=== PATIENT | female | born 1940 | race Caucasian/White ===

== ENCOUNTER 2016-07-28 13:25 | Inpatient (IN) ==
[2016-07-28] MEDS ORDERED: ALBUTEROL/IPRATROPIUM 3 ML NEB RESP TX PRN (13:26)
--- NOTE | 2016-07-28 14:53 | EKG Report ---
Stationary ECG Study [facility] Test Date: 07/28/2016 2:54:42 PM Pat Name: FERNANDO HINTON Department: Room: 544 Gender: F Curb Supervisor: MAVIS TO READ : 1940 Requested by: Mark Lennon Order Number: [id number] Reading MD: ARTEMIO GAMBLE Intervals [place] Rate: 61 P: 71 MI: 164 QRS: 51 QRSD: 94 T: 67 QT: 401 QTc: 404 Interpretive Statements Normal ECG (DR GAMBLE TO INTERP) SINUS RHYTHM POSSIBLE RIGHT VENTRICULAR CONDUCTION DELAY Electronically Signed On 07-29-16 12:06:41 CDT by ARTEMIO GAMBLE [email or web address]
[2016-07-28] MEDS: DEXTROSE 5% NACL 0.45% 1,000 ML IV SCH (15:19)
[2016-07-28] MEDS: PANTOPRAZOLE 40 MG TABLET PO SCH (15:19)
[2016-07-28] MEDS: methylPREDNISolone SOD SUC 125 MG/2 ML VIAL IV SCH ×2 (15:19→22:22)
[2016-07-28 15:53] LABS: Basophils % 0.2 % (0.0-0.8); Hematocrit 41.3 VOL% (35.7-47.0); Immature Granulocytes % 0.5 %; Immature Granulocytes Absolute 0.04 #; Lymphocytes # 0.6 10*3/uL (1.4-4.0); Lymphocytes % 7.6 % (21.3-54.2); Mean Corpuscular HGB Conc 31.5 GM/DL (32-36); Mean Corpuscular Hemoglobin 29 PG (27-34); Mean Corpuscular Volume 92.6 FL (87-102); Mean Platelet Volume 9.3 FL (9.6-12.0); Monocytes # 0.1 10*3/uL (0.11-0.8); Monocytes % 1.2 % (1.7-12.7); Neutrophils # 7.6 10*3/uL (1.4-7.4); Neutrophils % 90.5 % (38.7-73.9); Platelet Count 302 T/CUMM (130-400); Red Blood Count 4.46 MC/CUMM (3.8-5.5); Red Cell Distribution Width 13.2 % (9.3-17.3); White Blood Count 8.4 T/CUMM (4-12)
--- NOTE | 2016-07-28 16:01 | Pulmonology History & Physical ---
History of Present Illness Chief complaint: Acute exacerbation of asthma refractory to OP tx History of present illness: Mark Lennon, ANP-BC, GNP-BC, acting as scribe for Dr. Douglas Bright Mrs. Javier is a 75 year old white female from [place], [place]. She is followed from a primary care/pulmonary standpoint by Dr. 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 She is followed from a cardiology standpoint by Dr. Rush. She [facility] today as a work-in with complaints of increased shortness of breath, wheeze, and chest tightness for three days duration. She had increased her Prednisone every day and continued her routine medications, but she has been progressively worsening. [place] [facility] [place], she was given subQ Epinephrine but continued to have a significantly prolonged expiration with chest tightness. The decision was then made to hospitalize her for further evaluation and care given her acute illness, advanced age, and multiple co-morbidities. She denies cardiac angina or palpitations. There is no reported dysphagia or reflux. No bleeding from any site. No change in bowel or bladder habits. No TIA symptoms or syncope. All other systems were reviewed and were negative. Allergies: Codeine. Levaquin caused a yeast infection. Macrodantin makes her wheeze. Penicillin caused her lips to swell. Home medications: See list Immunizations: Pneumovax was given 04/21/11. She takes a yearly flu vaccination. The patient had a TDap in 2006. Past medical history: [place] hospitalization 05/28/16 through 06/03/16 under the care of Dr. Bright for status asthmaticus. Asthma. Diverticulitis of the colon. GERD. Hypertension. Sinusitis. Cholecystectomy. Hysterectomy. Several sinus surgeries. Social history: The patient does not smoke. Her in 2014. Her 's brother around the same time. Family history: Noncontributory CXR. Done today at [facility]. The heart size in normal. The mediastinum is not enlarged. There is no hilar adenopathy. The pulmonary arteries are not enlarged. The lung haque show no masses, infiltrates, or pulmonary edema. EKG: Pending Laboratory: Pending Home Medications Medication Instructions Recorded Confirmed Type Furosemide Tab [Lasix Tab] 40 mg PO BID DIURETIC PRN 05/28/16 05/28/16 History Meloxicam 15 mg PO DAILY 05/28/16 05/28/16 History Metoprolol Tartrate 25 mg PO BID 05/28/16 05/28/16 History Montelukast Tab [Singulair Tab] 10 mg PO DAILY 05/28/16 05/28/16 History NIFEdipine [Nifedipine ER] 30 mg PO BEDTIME 05/28/16 05/28/16 History Omeprazole [Prilosec] 20 mg PO DAILY 05/28/16 05/28/16 History Zolpidem Tartrate [Ambien] 10 mg PO BEDTIME 05/28/16 05/28/16 History buPROPion [Wellbutrin] 75 mg PO BID 05/28/16 05/28/16 History Albuterol/Ipratropium Neb [Duoneb] 3 ml RESP TX RT Q6H 06/03/16 Rx Sucralfate Tab [Carafate Tab] 1 gm PO ACHS #120 tablet 06/03/16 Rx Allergies Allergy/AdvReac Type Severity Reaction Status Date / Time nitrofurantoin Allergy Severe SHORTNESS Verified 01/22/16 13:49 [From Macrodantin] OF BREATH codeine Allergy Intermediate ITCHING Verified 01/22/16 13:49 Penicillins Allergy Intermediate Swelling Verified 01/22/16 13:47 of Lip/Tongue/Throat Medical,Surgical,& Family Hx - Medical History Cardio: History of: Hypertension, Cardiovascular Problems (increased heart rate) Respiratory: History of: Asthma No history of: Obstructive Sleep Apnea Musculoskeletal: History of: Musculoskeletal Problems - Surgical History Cardiac Surgeries: Sugical HX of: Cardiac Catheterization (4-5 years ago) Thoracic Surgeries: Patient denies;: Organ Transplant, Lobectomy Neurologic Surgeries: Patient denies: Neurologic Surgery HEENT Surgeries: Surgical HX of: Tonsilectomy & Adenoidectomy (hx of tonsillectomy) Abdominal Surgeries: Surgical HX of: Abdominal Surgery, Cholecystectomy Reproductive Surgeries: Surgical HX of;: Hysterectomy - Family History Family History: Reports;: Family Hypertension (mother), Family Stroke (father) - Social History Smoking Status: Never smoker Frequency of Alcohol Use: None Type of Drug Use: None Results - Labs CBC & BMP: 07/28/16 15:11 Exam (Pulmonay) H&P - Constitutional Vitals: Period Temp Pulse Resp BP Sys/Parra Pulse Ox Last 24 Hr 97.4 F 66 20 145/86 99 Exam: Psych: Alert and oriented x 3; a pleasant and cooperative patient who is acutely ill-appearing HEENT: Pupils, irises, sclera, conjunctiva, and eyelids are normal. The face is symmetrical without rash or masses. Lips, tongue, buccal mucosa, soft and hard palates, and pharynx are WNL Neck: Symmetrical. Thyroid was not palpated. Lymphatics: No submandibular, cervical, or supraclavicular adenopathy Chest: Symmetrical and slightly hyperinflated with little air movement; she is not moving enough air to produce a wheeze at this time Breasts: Deferred CV: Regular without murmur, gallop, or rub Arterial: Carotids with a good upstroke. There is no bruit. Upper extremity pulses are palpable. Lower extremity pulses are palpable. Venous: Exam of the neck, upper, and lower extremities is normal Abd: No appreciable organomegaly, masses, tenderness, or bruit; Bowel sounds are positive x 4; The aorta was not palpated /Rectal: Deferred Extremities: No clubbing, cyanosis, significant edema, or obvious DVT Skin: No cancerous or infectious lesions of the exposed, examined skin; the perineal area was not examined M/S: Age appropriate loss of the normal curvature of the cervical, thoracic, and lumbar spine Neurological: Cranial nerves are intact, Long tract motor function is intact; Sensory exam was not done; gait was not tested. The remainder of the exam was noncontributory. Impression: #1: Acute exacerbation of asthma refractory to OP tx #2: Steroid dependent asthma #3: Hypertension #4: Depression, under good control #5: GERD #6: See past history Plan: #1: Admit to inpatient #2: IV Solumedrol 62.5mg Q8H #3: Increase Singulair to 10mg PO BID #4: Epinephrine 0.1mg subQ Q8H PRN #5: Continue home medications except hold the Prednisone #6: Duoneb QID and PRN #7: See orders
[2016-07-28] MEDS ORDERED: FUROSEMIDE 40 MG TABLET PO PRN (16:30)
[2016-07-28 16:34] LABS: Albumin 4.1 G/DL (3.4-5.0); Bilirubin,Total 0.4 MG/DL (0.2-1.0); Calcium 9.2 MG/DL (8.5-10.1); Magnesium 2.2 MG/DL (1.8-2.4); Osmolality,Calculated 277.7 MOS/KG (273-304); Potassium 4.5 MMOL/L (3.5-5.1); Thyroid Stimulating Hormone 0.844 uIU/ml (0.358-3.74); Total Protein 6.4 G/DL (6.4-8.3)
[2016-07-28] MEDS: ALBUTEROL/IPRATROPIUM 3 ML NEB RESP TX SCH (18:30)
[2016-07-28] MEDS: METOPROLOL TARTRATE 25 MG TABLET PO SCH (20:29)
[2016-07-28] MEDS: MONTELUKAST 10 MG TABLET PO SCH (20:29)
[2016-07-28] MEDS: buPROPion 75 MG TABLET PO SCH (20:29)
[2016-07-28] MEDS: ZALEPLON 5 MG CAPSULE PO SCH (22:22)
[2016-07-29] MEDS: ALBUTEROL/IPRATROPIUM 3 ML NEB RESP TX SCH ×4 (00:30→19:54)
[2016-07-29] MEDS: ACETAMINOPHEN 325 MG TABLET PO PRN ×3 (03:41→14:57)
[2016-07-29] MEDS: methylPREDNISolone SOD SUC 125 MG/2 ML VIAL IV SCH ×3 (06:06→22:43)
[2016-07-29 06:23] LABS: Hematocrit 39.4 VOL% (35.7-47.0); Hemoglobin 12.6 GM/DL (12.0-16.0); Immature Granulocytes % 0.7 %; Immature Granulocytes Absolute 0.05 #; Lymphocytes # 0.9 10*3/uL (1.4-4.0); Lymphocytes % 11.1 % (21.3-54.2); Mean Corpuscular Hemoglobin 29 PG (27-34); Mean Corpuscular Volume 92.1 FL (87-102); Mean Platelet Volume 9.3 FL (9.6-12.0); Monocytes # 0.2 10*3/uL (0.11-0.8); Monocytes % 2.2 % (1.7-12.7); Neutrophils # 6.6 10*3/uL (1.4-7.4); Platelet Count 282 T/CUMM (130-400); Red Blood Count 4.28 MC/CUMM (3.8-5.5); White Blood Count 7.7 T/CUMM (4-12)
[2016-07-29 07:02] LABS: Calcium 8.6 MG/DL (8.5-10.1); Magnesium 2.3 MG/DL (1.8-2.4); Osmolality,Calculated 283.4 MOS/KG (273-304); Potassium 3.9 MMOL/L (3.5-5.1)
--- NOTE | 2016-07-29 08:13 | XRay Report ---
Two-view chest. Indication: Shortness of breath. The heart is normal in size. The pulmonary vasculature is normal. There is a mildly prominent epicardial fat pad. There is mild scarring within the lung haque and the lung haque are mildly hyperexpanded. No consolidation, pneumothorax, or pleural effusion. The osseous structures are diffusely demineralized with exaggerated kyphosis and mild spondylosis involving the thoracic spine. Impression: Stable appearance of the chest. PROCEDURE INTERPRETED AT [facility] DEPARTMENT OF RADIOLOGY Final Report Signed by: Dr. Stacy Mason
[2016-07-29] MEDS: MONTELUKAST 10 MG TABLET PO SCH ×2 (09:05→20:45)
[2016-07-29] MEDS: PANTOPRAZOLE 40 MG TABLET PO SCH (09:05)
[2016-07-29] MEDS: buPROPion 75 MG TABLET PO SCH ×2 (09:05→20:46)
[2016-07-29] MEDS: METOPROLOL TARTRATE 25 MG TABLET PO SCH ×2 (09:05→20:45)
[2016-07-29] MEDS: MELOXICAM 7.5 MG TABLET PO SCH (09:05)
[2016-07-29] MEDS: DEXTROSE 5% NACL 0.45% 1,000 ML IV SCH (09:08)
--- NOTE | 2016-07-29 11:01 | Pulmonology Progress Note ---
Pulmonary - PN: Subj Interval history: This is a 75-year-old white female who is admitted from my office on 07/28/2016. Admit diagnoses were. #1: Acute exacerbation of asthma refractory to OP tx #2: Steroid dependent asthma #3: Hypertension #4: Depression, under good control #5: GERD #6: See past history 07/29/2016. Patient improved overnight. She is still breathless at rest. Her laboratory tests look fine. There are no positive cultures thus far. She is tolerating her treatments well. Patient complains of a headache otherwise there were no new requests and no new complaints. Labs been reviewed. Chest x- ray has been reviewed. I do not see any infiltrates. Medicines been reviewed. Physical exam. Vital signs. See below Psychiatric. Oriented 3. Neurologic. Cranial nerves are intact. Long track motor functions intact. Eyes are normal. Face is symmetrical. Lips and tongue are normal. Neck. Symmetrical. No meningismus. Lymphatics. No submandibular cervical supraclavicular or epitrochlear adenopathy Chest is symmetrical mildly kyphotic and hyperinflated with prolonged incomplete expiration. I do not hear any large or small airway wheezing. There is only faint large airway congestion. The most prominent finding is dyspnea at rest and a prolonged expiration without wheezing. Heart. No gallop Abdomen. Nontender. Bowel sounds are present. Extremities. No submandibular cervical or supraclavicular adenopathy. The remainder the physical exam is noncontributory Plan: #1: Admit to inpatient #2: IV Solumedrol 62.5mg Q8H #3: Increase Singulair to 10mg PO BID #4: Epinephrine 0.1mg subQ Q8H PRN #5: Continue home medications except hold the Prednisone #6: Duoneb QID and PRN #7: See orders and see my note 07/29/2016 Exam (Progress Note) - Constitutional Vitals: Period Temp Pulse Resp BP Sys/Parra Pulse Ox Last 24 Hr 96.5 F-97.6 F 66-86 16-20 123-156/70-87 93-99 Results - Labs CBC & BMP: 07/29/16 05:50 07/29/16 05:50
[2016-07-29] MEDS: KETOROLAC 15 MG/1 ML VIAL IV PRN ×3 (11:50→22:40)
[2016-07-29] MEDS: EPINEPHrine 1 MG/ML VIAL SUBCUT PRN (21:51)
[2016-07-29] MEDS: ZALEPLON 5 MG CAPSULE PO SCH (22:40)
[2016-07-29 23:38] LABS: Apearance,Urine CLEAR (Clear); Bilirubin,Urine Negative (Negative); Blood, Urine Negative (Negative); Glucose,Urine (UA) 150 mg/dL (Negative); Hyaline Casts,Urine 3 /LPF (0-3); Ketones,Urine 5 mg/dL (Negative); Mucus,Urine Moderate /LPF (Occasional); Nitrite,Urine Negative (Negative); Protein,Urine Negative; Squamous Epithelial Cell,Urine Occasional /HPF (0-10); Urine Color Yellow (Yellow); Urine Specific Gravity 1.027 (1.001-1.035); Urine Urobilinogen < 2.0 EU/DL (0.2-1.0); WBC,Urine 1 /HPF (0-6)
[2016-07-30] MEDS: ALBUTEROL/IPRATROPIUM 3 ML NEB RESP TX SCH ×4 (00:54→19:13)
[2016-07-30] MEDS: DEXTROSE 5% NACL 0.45% 1,000 ML IV SCH ×2 (01:22→22:57)
[2016-07-30] MEDS: methylPREDNISolone SOD SUC 125 MG/2 ML VIAL IV SCH ×3 (06:27→22:54)
[2016-07-30] MEDS: KETOROLAC 15 MG/1 ML VIAL IV PRN ×2 (06:33→11:17)
[2016-07-30 06:45] LABS: Basophils % 0.1 % (0.0-0.8); Hematocrit 35.8 VOL% (35.7-47.0); Hemoglobin 11.6 GM/DL (12.0-16.0); Immature Granulocytes % 0.7 %; Immature Granulocytes Absolute 0.09 #; Lymphocytes # 0.8 10*3/uL (1.4-4.0); Lymphocytes % 6.2 % (21.3-54.2); Mean Corpuscular HGB Conc 32.4 GM/DL (32-36); Mean Corpuscular Hemoglobin 29 PG (27-34); Mean Corpuscular Volume 90.6 FL (87-102); Mean Platelet Volume 9.4 FL (9.6-12.0); Monocytes # 0.4 10*3/uL (0.11-0.8); Monocytes % 3.4 % (1.7-12.7); Neutrophils # 11.4 10*3/uL (1.4-7.4); Neutrophils % 89.6 % (38.7-73.9); Platelet Count 268 T/CUMM (130-400); Red Blood Count 3.95 MC/CUMM (3.8-5.5); Red Cell Distribution Width 13.2 % (9.3-17.3); White Blood Count 12.7 T/CUMM (4-12)
[2016-07-30 07:22] LABS: Calcium 8.4 MG/DL (8.5-10.1); Magnesium 2.3 MG/DL (1.8-2.4); Osmolality,Calculated 282.5 MOS/KG (273-304); Potassium 4.1 MMOL/L (3.5-5.1)
[2016-07-30] MEDS: PANTOPRAZOLE 40 MG TABLET PO SCH (08:13)
[2016-07-30] MEDS: MELOXICAM 7.5 MG TABLET PO SCH (08:16)
[2016-07-30] MEDS: buPROPion 75 MG TABLET PO SCH ×2 (08:17→20:33)
[2016-07-30] MEDS: METOPROLOL TARTRATE 25 MG TABLET PO SCH ×2 (08:17→20:33)
[2016-07-30] MEDS: MONTELUKAST 10 MG TABLET PO SCH ×2 (08:17→20:32)
[2016-07-30] MEDS: EPINEPHrine 1 MG/ML VIAL SUBCUT PRN (11:16)
--- NOTE | 2016-07-30 12:07 | Pulmonology Progress Note ---
Pulmonary - PN: Subj Interval history: Mark Lennon, ANP-BC, GNP-BC, acting as scribe for Dr. Douglas Bright This is a 75-year-old white female who was admitted from [facility] [place] on 07/28/2016. Admit diagnoses were: #1: Acute exacerbation of asthma refractory to OP tx #2: Steroid dependent asthma #3: Hypertension #4: Depression, under good control #5: GERD #6: See past history 07/29/2016. Patient improved overnight. She is still breathless at rest. Her laboratory tests look fine. There are no positive cultures thus far. She is tolerating her treatments well. Patient complains of a headache otherwise there were no new requests and no new complaints. Labs been reviewed. Chest x- ray has been reviewed. I do not see any infiltrates. 07/30/16. The patient was seen today along with Ynes Stephenson RN. She required an Epinephrine injection last night, but on chest exam today her expiration is more complete. She continues to have a cough and is beginning to mobilize some secretions. She understands to ask for the Epi if needed. Medications have been reviewed. We made no changes today. Labs have been reviewed. Exam (Progress Note) - Constitutional Vitals: Period Temp Pulse Resp BP Sys/Parra Pulse Ox Last 24 Hr 97.5 F-98.2 F 70-90 16-20 124-142/64-81 95-99 Exam: Chest...as above Heart no gallop Abd is nontender and nondistended; BS postivie x 4 Ext with nothing to suggest acute DVT Psych oriented x 3 Neuro long tract motor function is intact Plan: Continue PRN Epinephrine. Continue present treatment. It will most likely be Thursday before she is ready for discharge. Results - Labs CBC & BMP: 07/30/16 06:01 07/30/16 06:01
[2016-07-30] MEDS: ZALEPLON 5 MG CAPSULE PO SCH (20:32)
[2016-07-31] MEDS: ALBUTEROL/IPRATROPIUM 3 ML NEB RESP TX SCH ×4 (01:08→19:36)
[2016-07-31] MEDS: KETOROLAC 15 MG/1 ML VIAL IV PRN ×2 (04:47→11:40)
[2016-07-31] MEDS: methylPREDNISolone SOD SUC 125 MG/2 ML VIAL IV SCH ×3 (06:37→22:52)
[2016-07-31] MEDS: MELOXICAM 7.5 MG TABLET PO SCH (07:59)
[2016-07-31] MEDS: MONTELUKAST 10 MG TABLET PO SCH ×2 (07:59→20:51)
[2016-07-31] MEDS: buPROPion 75 MG TABLET PO SCH ×2 (07:59→20:51)
[2016-07-31] MEDS: PANTOPRAZOLE 40 MG TABLET PO SCH (07:59)
[2016-07-31] MEDS: METOPROLOL TARTRATE 25 MG TABLET PO SCH ×2 (07:59→20:51)
[2016-07-31] MEDS: DORNASE ALFA 2.5 MG/2.5 ML VIAL RESP TX SCH ×2 (10:59→19:37)
--- NOTE | 2016-07-31 12:01 | Pulmonology Progress Note ---
Pulmonary - PN: Subj Interval history: Mark Lennon, ANP-BC, GNP-BC, acting as scribe for Dr. Douglas Bright This is a 75-year-old white female who was admitted from [facility] on 07/28/2016. Admit diagnoses were: #1: Acute exacerbation of asthma refractory to OP tx #2: Steroid dependent asthma #3: Hypertension #4: Depression, under good control #5: GERD #6: See past history 07/29/2016. Patient improved overnight. She is still breathless at rest. Her laboratory tests look fine. There are no positive cultures thus far. She is tolerating her treatments well. Patient complains of a headache otherwise there were no new requests and no new complaints. Labs been reviewed. Chest x- ray has been reviewed. I do not see any infiltrates. 07/30/16. The patient was seen today along with Ynes Stephenson RN. She required an Epinephrine injection last night, but on chest exam today her expiration is more complete. She continues to have a cough and is beginning to mobilize some secretions. She understands to ask for the Epi if needed. 07/31/2016. The patient was seen today along with Marina Gorman RN. She is making slow improvements daily. She did not require epinephrine after yesterday afternoon. Her cough has become more loose and she is beginning to mobilize her secretions. Today will add Acapella and Pulmozyme. She has costochondritis which of course is exacerbated by her significant coughing. We will treat this with a Flector patch every 12 hours. Medications have been reviewed. Labs have been reviewed. No new labs were drawn today. Exam (Progress Note) - Constitutional Vitals: Period Temp Pulse Resp BP Sys/Parra Pulse Ox Last 24 Hr 97.4 F-98.2 F 69-84 16-20 105-162/68-89 94-100 Exam: Chest...as above Heart no gallop Abd is nontender and nondistended; BS postivie x 4 Ext with nothing to suggest acute DVT Psych oriented x 3 Neuro long tract motor function is intact Plan: Continue PRN Epinephrine. Continue present treatment. Flector patch every 12 hours to sternum for costochondritis. Start Acapella with all inhalation treatments and Pulmozyme twice daily. See orders. Results - Labs CBC & BMP: 07/30/16 06:01 07/30/16 06:01
[2016-07-31] MEDS: DICLOFENAC 1.3% PATCH 5/PACK TRANSDERM SCH ×3 (13:32→20:54)
[2016-07-31] MEDS: DEXTROSE 5% NACL 0.45% 1,000 ML IV SCH (14:07)
[2016-07-31] MEDS: ZALEPLON 5 MG CAPSULE PO SCH (20:51)
[2016-08-01] MEDS: ALBUTEROL/IPRATROPIUM 3 ML NEB RESP TX SCH ×4 (00:43→19:04)
[2016-08-01] MEDS: methylPREDNISolone SOD SUC 125 MG/2 ML VIAL IV SCH ×3 (06:07→23:04)
[2016-08-01 07:39] LABS: Basophils % 0.2 % (0.0-0.8); Hemoglobin 13.2 GM/DL (12.0-16.0); Immature Granulocytes % 1.1 %; Immature Granulocytes Absolute 0.13 #; Lymphocytes # 0.8 10*3/uL (1.4-4.0); Lymphocytes % 6.7 % (21.3-54.2); Mean Corpuscular Hemoglobin 29 PG (27-34); Mean Corpuscular Volume 88.9 FL (87-102); Mean Platelet Volume 9.4 FL (9.6-12.0); Monocytes # 0.4 10*3/uL (0.11-0.8); Monocytes % 3.5 % (1.7-12.7); Neutrophils # 10.1 10*3/uL (1.4-7.4); Neutrophils % 88.5 % (38.7-73.9); Platelet Count 299 T/CUMM (130-400); Red Cell Distribution Width 13.4 % (9.3-17.3); White Blood Count 11.4 T/CUMM (4-12)
[2016-08-01] MEDS: DORNASE ALFA 2.5 MG/2.5 ML VIAL RESP TX SCH ×2 (07:43→19:11)
[2016-08-01 08:11] LABS: Calcium 8.4 MG/DL (8.5-10.1); Magnesium 2.4 MG/DL (1.8-2.4); Osmolality,Calculated 283.4 MOS/KG (273-304)
[2016-08-01] MEDS: MONTELUKAST 10 MG TABLET PO SCH ×2 (08:15→21:16)
[2016-08-01] MEDS: PANTOPRAZOLE 40 MG TABLET PO SCH (08:15)
[2016-08-01] MEDS: MELOXICAM 7.5 MG TABLET PO SCH (08:15)
[2016-08-01] MEDS: METOPROLOL TARTRATE 25 MG TABLET PO SCH ×2 (08:15→21:16)
[2016-08-01] MEDS: buPROPion 75 MG TABLET PO SCH ×2 (08:15→21:16)
[2016-08-01] MEDS: DICLOFENAC 1.3% PATCH 5/PACK TRANSDERM SCH ×2 (08:16→21:16)
[2016-08-01] MEDS: DEXTROSE 5% NACL 0.45% 1,000 ML IV SCH (08:16)
--- NOTE | 2016-08-01 10:33 | Pulmonology Progress Note ---
Pulmonary - PN: Subj Interval history: Mark Lennon, ANP-BC, GNP-BC, acting as scribe for Dr. Douglas Bright This is a 75-year-old white female who was admitted from [facility] [place] [place] on 07/28/2016. Admit diagnoses were: #1: Acute exacerbation of asthma refractory to OP tx #2: Steroid dependent asthma #3: Hypertension #4: Depression, under good control #5: GERD #6: See past history 07/29/2016. Patient improved overnight. She is still breathless at rest. Her laboratory tests look fine. There are no positive cultures thus far. She is tolerating her treatments well. Patient complains of a headache otherwise there were no new requests and no new complaints. Labs been reviewed. Chest x- ray has been reviewed. I do not see any infiltrates. 07/30/16. The patient was seen today along with Ynes Stephenson RN. She required an Epinephrine injection last night, but on chest exam today her expiration is more complete. She continues to have a cough and is beginning to mobilize some secretions. She understands to ask for the Epi if needed. 07/31/2016. The patient was seen today along with Marina Gorman RN. She is making slow improvements daily. She did not require epinephrine after yesterday afternoon. Her cough has become more loose and she is beginning to mobilize her secretions. Today will add Acapella and Pulmozyme. She has costochondritis which of course is exacerbated by her significant coughing. We will treat this with a Flector patch every 12 hours. 08/01/2016. Patient was seen today along with Ynes Stephenson RN. Patient was admitted with an acute exacerbation of her asthma which been refractory to outpatient treatment. She has steroid-dependent asthma. Her last required dose of epinephrine was on 07/30/2016. She has this ordered for 0.1 mg subcu every 8 hours as needed. Yesterday we added Acapella and Pulmozyme to her regimen. She was able to expectorate a scant amount of sputum yesterday. She has costochondritis and this is significantly hindering her ability to cough deeply. This being treated with Flector patch and is improving. Medications have been reviewed. We made no changes today. Labs have been reviewed. White count is 11,400 with 88.5% segs; H&H 13.2/40.0; platelet count 299,000; creatinine 0.70, BUN 21, electrolytes are normal Exam (Progress Note) - Constitutional Vitals: Period Temp Pulse Resp BP Sys/Parra Pulse Ox Last 24 Hr 97.3 F-98.5 F 66-89 16-18 140-162/75-89 96-100 Exam: Chest with prolonged and slightly incomplete expiration, but with much less wheeze; mild loose large airway congestion Heart no gallop Abd is nontender and nondistended; BS positive x 4 Ext with nothing to suggest acute DVT Psych oriented x 3 Neuro long tract motor function is intact Plan: Continue PRN Epinephrine. Continue present treatment. Continue Flector patch every 12 hours to sternum for costochondritis. Continue Acapella with all inhalation treatments and Pulmozyme twice daily. See orders. She will be here through the weekend. Results - Labs CBC & BMP: 08/01/16 07:00 08/01/16 07:00
[2016-08-01] MEDS: ZALEPLON 5 MG CAPSULE PO SCH (21:16)
[2016-08-02] MEDS: ALBUTEROL/IPRATROPIUM 3 ML NEB RESP TX SCH ×4 (01:25→18:58)
[2016-08-02] MEDS: methylPREDNISolone SOD SUC 125 MG/2 ML VIAL IV SCH (06:48)
[2016-08-02] MEDS: DORNASE ALFA 2.5 MG/2.5 ML VIAL RESP TX SCH (08:13)
[2016-08-02] MEDS: MELOXICAM 7.5 MG TABLET PO SCH (08:19)
[2016-08-02] MEDS: DICLOFENAC 1.3% PATCH 5/PACK TRANSDERM SCH ×2 (08:19→20:23)
[2016-08-02] MEDS: buPROPion 75 MG TABLET PO SCH ×2 (08:19→21:10)
[2016-08-02] MEDS: MONTELUKAST 10 MG TABLET PO SCH ×2 (08:19→20:24)
[2016-08-02] MEDS: METOPROLOL TARTRATE 25 MG TABLET PO SCH ×2 (08:19→20:24)
[2016-08-02] MEDS: PANTOPRAZOLE 40 MG TABLET PO SCH (08:19)
--- NOTE | 2016-08-02 12:37 | Pulmonology Progress Note ---
Pulmonary - PN: Subj Interval history: This 75-year-old white female has a history of severe asthma. She came in with acute exacerbation. It has responded to Solu-Medrol and some epinephrine. She is feeling better today but were tapering her medications. She is eating and drinking fine so she does not need IV fluids further. Exam (Progress Note) - Constitutional Vitals: Period Temp Pulse Resp BP Sys/Parra Pulse Ox Last 24 Hr 97.1 F-99.4 F 66-80 18-58 134-160/75-78 96-99 Exam: Alert oriented vital signs normal. Pupils react to light. Throat is clear. Neck supple no bruits. Chest shows prolonged expiratory phase no wheezes. Heart normal rate and rhythm no murmurs. Abdomen soft no masses. Extremities no clubbing cyanosis edema. Calves nontender Results - Labs CBC & BMP: 08/01/16 07:00 08/01/16 07:00 Lab Results: I have reviewed the past 24 hour labs Assessment and Plan (1) Asthma exacerbation Status: Acute Assessment and plan: She is improved with current medications. Will reduce steroids. Increase activities. Starting to cough up some phlegm. Current Visit: Yes
[2016-08-02] MEDS: methylPREDNISolone SOD SUC 40 MG/1 ML VIAL IV SCH (21:09)
[2016-08-02] MEDS: ZALEPLON 5 MG CAPSULE PO SCH (21:13)
[2016-08-03] MEDS: ALBUTEROL/IPRATROPIUM 3 ML NEB RESP TX SCH ×4 (00:13→18:51)
[2016-08-03] MEDS: buPROPion 75 MG TABLET PO SCH ×2 (08:42→22:22)
[2016-08-03] MEDS: MELOXICAM 7.5 MG TABLET PO SCH (08:42)
[2016-08-03] MEDS: PANTOPRAZOLE 40 MG TABLET PO SCH (08:42)
[2016-08-03] MEDS: MONTELUKAST 10 MG TABLET PO SCH ×2 (08:42→22:22)
[2016-08-03] MEDS: METOPROLOL TARTRATE 25 MG TABLET PO SCH ×2 (08:42→22:22)
[2016-08-03] MEDS: DICLOFENAC 1.3% PATCH 5/PACK TRANSDERM SCH ×2 (10:32→22:26)
[2016-08-03] MEDS: methylPREDNISolone SOD SUC 40 MG/1 ML VIAL IV SCH ×2 (10:32→22:26)
--- NOTE | 2016-08-03 11:12 | Pulmonology Progress Note ---
Pulmonary - PN: Subj Interval history: This 75-year-old white female has a history of severe asthma. She came in with acute exacerbation. It has responded to Solu-Medrol and some epinephrine. She is feeling better today but were tapering her medications. She is eating and drinking fine so she does not need IV fluids further. 08/03/2016 patient has had a good response to treatment for asthma exacerbation. Should be ready for discharge tomorrow. Exam (Progress Note) - Constitutional Vitals: Period Temp Pulse Resp BP Sys/Parra Pulse Ox Last 24 Hr 98.1 F-98.8 F 69-96 14-20 138-160/71-91 96-100 Exam: Alert oriented vital signs normal. Pupils react to light. Throat is clear. Neck supple no bruits. Chest shows prolonged expiratory phase no wheezes. Heart normal rate and rhythm no murmurs. Abdomen soft no masses. Extremities no clubbing cyanosis edema. Calves nontender. little change from yesterday. Results - Labs CBC & BMP: 08/01/16 07:00 08/01/16 07:00 Lab Results: I have reviewed the past 24 hour labs Assessment and Plan (1) Asthma exacerbation Status: Acute Assessment and plan: She is improved with current medications. Will reduce steroids. Increase activities. Starting to cough up some phlegm. 08/03/2016 is wheeze free and ambulatory. Getting up a little more sputum. Ready for discharge tomorrow. Current Visit: Yes
[2016-08-03] MEDS: ZALEPLON 5 MG CAPSULE PO SCH (22:22)
[2016-08-04] MEDS: ALBUTEROL/IPRATROPIUM 3 ML NEB RESP TX SCH ×4 (00:32→19:24)
[2016-08-04] MEDS: DICLOFENAC 1.3% PATCH 5/PACK TRANSDERM SCH ×2 (09:47→21:50)
[2016-08-04] MEDS: METOPROLOL TARTRATE 25 MG TABLET PO SCH ×2 (09:49→21:51)
[2016-08-04] MEDS: buPROPion 75 MG TABLET PO SCH ×2 (09:49→21:51)
[2016-08-04] MEDS: MELOXICAM 7.5 MG TABLET PO SCH (09:49)
[2016-08-04] MEDS: MONTELUKAST 10 MG TABLET PO SCH ×2 (09:49→21:51)
[2016-08-04] MEDS: PANTOPRAZOLE 40 MG TABLET PO SCH (09:49)
[2016-08-04] MEDS: methylPREDNISolone SOD SUC 40 MG/1 ML VIAL IV SCH (09:50)
--- NOTE | 2016-08-04 10:50 | Pulmonology Progress Note ---
Pulmonary - PN: Subj Interval history: Mark Lennon, ANP-BC, GNP-BC, acting as scribe for Dr. Douglas Bright This is a 75-year-old white female who was [place] [facility] [place]. Admit diagnoses were: #1: Acute exacerbation of asthma refractory to OP tx #2: Steroid dependent asthma #3: Hypertension #4: Depression, under good control #5: GERD #6: See past history 07/29/2016. Patient improved overnight. She is still breathless at rest. Her laboratory tests look fine. There are no positive cultures thus far. She is tolerating her treatments well. Patient complains of a headache otherwise there were no new requests and no new complaints. Labs been reviewed. Chest x- ray has been reviewed. I do not see any infiltrates. 07/30/16. The patient was seen today along with Ynes Stephenson RN. She required an Epinephrine injection last night, but on chest exam today her expiration is more complete. She continues to have a cough and is beginning to mobilize some secretions. She understands to ask for the Epi if needed. 07/31/2016. The patient was seen today along with Marina Gorman RN. She is making slow improvements daily. She did not require epinephrine after yesterday afternoon. Her cough has become more loose and she is beginning to mobilize her secretions. Today will add Acapella and Pulmozyme. She has costochondritis which of course is exacerbated by her significant coughing. We will treat this with a Flector patch every 12 hours. 08/01/2016. Patient was seen today along with Ynes Stephenson RN. Patient was admitted with an acute exacerbation of her asthma which been refractory to outpatient treatment. She has steroid-dependent asthma. Her last required dose of epinephrine was on 07/30/2016. She has this ordered for 0.1 mg subcu every 8 hours as needed. Yesterday we added Acapella and Pulmozyme to her regimen. She was able to expectorate a scant amount of sputum yesterday. She has costochondritis and this is significantly hindering her ability to cough deeply. This being treated with Flector patch and is improving. 08/04/16. The patient was seen today along with Marina Gorman RN. She has had no sputum production through the weekend, but her breathing has remained stable. Her IV has infiltrated. We will leave it out and convert her Solumedrol to Prednisone 20mg PO BID. If her breathing remains stable to improved, she will be ready for discharge tomorrow. We've asked her to continue to ambulate as much as possible. She agrees. She has not required any more Epinephrine. Medications have been reviewed. Stop Solumedrol and start Prednisone 20mg PO BID. Labs have been reviewed. No new labs were drawn today. Exam (Progress Note) - Constitutional Vitals: Period Temp Pulse Resp BP Sys/Parra Pulse Ox Last 24 Hr 97.6 F-98.4 F 71-89 16-20 136-174/68-82 96-100 Exam: Chest with prolonged and slightly incomplete expiration, but wheeze free; faint LAW congestion Heart no gallop Abd is nontender and nondistended; BS positive x 4 Ext with nothing to suggest acute DVT Psych oriented x 3 Neuro long tract motor function is intact Plan: Stop Solumedrol and start Prednisone as above. Continue other present treatments. Continue ambulation. She should be ready for discharge tomorrow if her breathing remains stable with the change from Solumedrol to Prednisone. Results - Labs CBC & BMP: 08/01/16 07:00 08/01/16 07:00
[2016-08-04] MEDS: predniSONE 20 MG TABLET PO SCH ×2 (11:54→23:22)
[2016-08-04] MEDS: ZALEPLON 5 MG CAPSULE PO SCH (21:51)
[2016-08-05] MEDS: ALBUTEROL/IPRATROPIUM 3 ML NEB RESP TX SCH ×2 (01:10→07:30)
[2016-08-05 07:37] VITALS: BP 147/80
[2016-08-05] MEDS: MONTELUKAST 10 MG TABLET PO SCH (08:21)
[2016-08-05] MEDS: METOPROLOL TARTRATE 25 MG TABLET PO SCH (08:21)
[2016-08-05] MEDS: buPROPion 75 MG TABLET PO SCH (08:21)
[2016-08-05] MEDS: MELOXICAM 7.5 MG TABLET PO SCH (08:21)
[2016-08-05] MEDS: PANTOPRAZOLE 40 MG TABLET PO SCH (08:21)
[2016-08-05] MEDS: DICLOFENAC 1.3% PATCH 5/PACK TRANSDERM SCH (08:29)
--- NOTE | 2016-08-05 10:21 | Pulmonology Progress Note ---
Pulmonary - PN: Subj Interval history: Mark Lennon, ANP-BC, GNP-BC, acting as scribe for Dr. Douglas Bright This is a 75-year-old white female who was admitted from [facility] [place] on 07/28/2016. Admit diagnoses were: #1: Acute exacerbation of asthma refractory to OP tx #2: Steroid dependent asthma #3: Hypertension #4: Depression, under good control #5: GERD #6: See past history 07/29/2016. Patient improved overnight. She is still breathless at rest. Her laboratory tests look fine. There are no positive cultures thus far. She is tolerating her treatments well. Patient complains of a headache otherwise there were no new requests and no new complaints. Labs been reviewed. Chest x- ray has been reviewed. I do not see any infiltrates. 07/30/16. The patient was seen today along with Ynes Stephenson RN. She required an Epinephrine injection last night, but on chest exam today her expiration is more complete. She continues to have a cough and is beginning to mobilize some secretions. She understands to ask for the Epi if needed. 07/31/2016. The patient was seen today along with Marina Gorman RN. She is making slow improvements daily. She did not require epinephrine after yesterday afternoon. Her cough has become more loose and she is beginning to mobilize her secretions. Today will add Acapella and Pulmozyme. She has costochondritis which of course is exacerbated by her significant coughing. We will treat this with a Flector patch every 12 hours. 08/01/2016. Patient was seen today along with Ynes Stephenson RN. Patient was admitted with an acute exacerbation of her asthma which been refractory to outpatient treatment. She has steroid-dependent asthma. Her last required dose of epinephrine was on 07/30/2016. She has this ordered for 0.1 mg subcu every 8 hours as needed. Yesterday we added Acapella and Pulmozyme to her regimen. She was able to expectorate a scant amount of sputum yesterday. She has costochondritis and this is significantly hindering her ability to cough deeply. This being treated with Flector patch and is improving. 08/04/16. The patient was seen today along with Marina Gorman RN. She has had no sputum production through the weekend, but her breathing has remained stable. Her IV has infiltrated. We will leave it out and convert her Solumedrol to Prednisone 20mg PO BID. If her breathing remains stable to improved, she will be ready for discharge tomorrow. We've asked her to continue to ambulate as much as possible. She agrees. She has not required any more Epinephrine. 08/05/2016. The patient was seen today along with nYes Stephenson RN. She was able to ambulate in the halls yesterday. She states that her breathing has remained stable. She denies any significant ways. She has not required any further epinephrine. She appears back to baseline. Expiration is slightly prolonged, but no wheeze. No large airway congestion. Medications have been reviewed. Labs have been reviewed. No new labs were drawn today. Exam (Progress Note) - Constitutional Vitals: Period Temp Pulse Resp BP Sys/Parra Pulse Ox Last 24 Hr 97.4 F-98.4 F 71-94 16-20 131-156/64-84 95-99 Exam: Chest... As above Heart no gallop Abd is nontender and nondistended; BS positive x 4 Ext with nothing to suggest acute DVT Psych oriented x 3 Neuro long tract motor function is intact Plan: She is now met maximal hospital benefit and will be discharged home. Please see my discharge summary dated 08/05/2016. Results - Labs CBC & BMP: 08/01/16 07:00 08/01/16 07:00
--- NOTE | 2016-08-05 10:21 | Discharge Summary ---
Hospital Course - Hospital Course Hospital Course: Mark Lennon, ANP-BC, GNP-BC, acting as scribe for Dr. Douglas Bright Mrs. Javier is a 75-year-old white female who was [facility]/28/[facility] with an acute exacerbation of her asthma which have been refractory to outpatient treatment. The patient was admitted and started on high-dose Solu-Medrol, continued inhalation therapy, and as needed epinephrine. She has very brittle asthma steroid-dependent. Over time, her wheezes have subsided. She does not have a productive cough. Expiration is prolonged, but no adventitious breath sounds. She has not required any subcu epinephrine since 07/30/2016. She has been able to ambulate in the jara and her improved respiratory status has remained stable. She did require the addition of Pulmozyme and Acapella to help mobilize her secretions. She is now back to her baseline. Sputum for Gram stain, culture and sensitivity was ordered at admission, however , the patient never produced a sputum for testing. Therefore, we are unable to state exactly what the causative organism was for her acute exacerbation. At discharge, white count is 11,400 with 88.5% segs, 67% lymphs, and 3.5% monos ; H&H 13.2/40.0 with normal indices and normal red blood cell distribution width ; platelet count 299,000; creatinine 0.70, BUN 21, sodium 140, potassium 4.0, magnesium 2.4; calcium 8.4, albumin 4.1, total protein 6.4; liver function tests within normal limits; TSH and free T4 were normal at 0.844 and 1.08 respectively; urinalysis showed no evidence of infection. For more information regarding Mrs. Javier's past medical history, social history, family history, admit labs, admit x-ray and admit exam, please see my admission note dated 07/28/2016. Impression: #1: Acute exacerbation of asthma refractory to OP tx--- resolved #2: Steroid dependent asthma #3: Hypertension #4: Depression, under good control #5: GERD #6: See past history Plan: Prednisone 20 mg twice daily, DuoNeb's every 6 hours as needed, Wellbutrin 75 mg twice daily, Lasix 40 mg twice daily as needed for edema, Mobic 15 mg daily, Lopressor 25 mg twice daily, Singulair 10 mg twice daily, Procardia XL 30 mg at bedtime, Ambien 10 mg at bedtime, and omeprazole 20 mg daily. She will resume her home inhaler which was not listed on her medication list this admission. She will be scheduled to see Mark Lennon, nurse practitioner, in approximately 1 week. She can be seen sooner if needed. Specialty Discharge - Follow Up or Referrals Follow up with: Mark Lennon CFNP [Advanced Practice Nurse] - (Thursday08/13/16) Discharge Plan - Discharge Data Disposition: Disch To Home/Self Care Condition at Discharge: Stable Discharge Diet: regular diet Activity: resume usual activities as tolerated - Discharge Medications New Acetaminophen Tab [Tylenol Tab] 650 mg PO Q4H PRN #0 tablet PRN Reason: Fever, Headache, Mild Pain predniSONE TAB [PredniSONE] 20 mg PO Q12H #28 tablet Montelukast Tab [Singulair Tab] 10 mg PO BID tablet Continue Meloxicam 15 mg PO DAILY Albuterol/Ipratropium Neb [Duoneb] 3 ml RESP TX RT Q6H Furosemide Tab [Lasix Tab] 40 mg PO BID DIURETIC PRN PRN Reason: Edema Zolpidem Tartrate [Ambien] 10 mg PO BEDTIME NIFEdipine [Nifedipine ER] 30 mg PO BEDTIME Metoprolol Tartrate 25 mg PO BID Omeprazole [Prilosec] 20 mg PO DAILY buPROPion [Wellbutrin] 75 mg PO BID Discontinued Montelukast Tab [Singulair Tab] 10 mg PO DAILY Sucralfate Tab [Carafate Tab] 1 gm PO ACHS #120 tablet - Follow Up or Referral - Forms/Instructions Exam - Constitutional Vitals: Period Temp Pulse Resp BP Sys/Parra Pulse Ox Last 24 Hr 97.4 F-98.4 F 71-94 16-20 131-156/64-84 95-99 DS: Provider Date of admission: 07/28/16 13:58 Primary care physician: Douglas Bright MD Attending physician on admission: Douglas Bright MD Discharging clinician: BRANDIE Steele
== END 2016-08-05 11:45 | disposition home or self-care (01) | DRG 203 ==
LOC: N.5E 13:58
PROVIDERS: ADMIT Internal Medicine Pulmonary Disease; ATTEND Internal Medicine Pulmonary Disease